=== PATIENT | female | born 1975 | race Caucasian/White ===

== ENCOUNTER 2017-10-17 01:45 | Emergency (ER) | payer SELFPAY, OTHER ==
[2017-10-17] MEDS: ACETAMINOPHEN 325 MG TAB PO (04:16)
[2017-10-17] MEDS: ONDANSETRON (ODT) 4 MG TAB ODT (04:16)
[2017-10-17] MEDS: HYDROCODONE/APAP (5/325) TAB PO (05:35)
[2017-10-17] MEDS: CYCLOBENZAPRINE 10 MG TAB PO (05:35)
== END 2017-10-17 06:03 | disposition home or self-care (01) ==
LOC: FTE 01:45
DX: S40.012A Contusion of left shoulder, initial encounter (principal); S13.9XXA Sprain of joints and ligaments of unspecified parts of neck, initial encounter; S39.92XA Unspecified injury of lower back, initial encounter; S29.9XXA Unspecified injury of thorax, initial encounter; S06.0X0A Concussion without loss of consciousness, initial encounter; F17.210 Nicotine dependence, cigarettes, uncomplicated; V49.50XA Passenger injured in collision with unspecified motor vehicles in traffic accident, initial encounter
CPT/HCPCS: 70450; 71100; 72040; 99284-25